=== PATIENT | male | born 1935 | race African-American/Black ===

== ENCOUNTER 2022-04-06 10:59 | Inpatient (IN) | payer OTHER, MEDICAID ==
[~2022-04-06] VITALS: Ht 182.9 cm; Wt 78.9 kg
[2022-04-06 11:49] LABS: BG BASE EXCESS -6.4 mmol/L (-2.0-2.0); BG CARBOXYHEMOGLOBIN 1.1 % (0.5-1.5); BG DEOXYHEMOGLOBIN 1.9 % (0.0-5.0); BG FRACTION INSPIRED OXYGEN 32; BG HCO3 ACT 19.5 mmol/L (22.0-26.0); BG METHEMOGLOBIN 0.3 % (0.0-1.5); BG OXYGEN SATURATION 98.1 % (92.0-98.5); BG OXYHEMOGLOBIN 96.7 % (94.0-97.0); BG PCO2 39.8 mmHg (35.0-45.0); BG PH 7.307 (7.350-7.450); BG PO2 111.1 mmHg (75.0-100.0); BG SAMPLE SITE RIGHT RADIAL; BG TOTAL HEMOGLOBIN 15.2 g/dL (12.0-18.0); BG VENT MODE NASAL CANNULA
[2022-04-06 11:59] LABS: BASOPHILS % 2.1 % (0.0-2.0); EOSINOPHILS % 1.7 % (0.0-5.0); HEMATOCRIT. 50.3 % (42.0-52.0); HEMOGLOBIN. 14.7 g/dL (14.0-18.0); LYMPHOCYTES % 14.6 % (20.0-50.0); MEAN CORPUSCULAR HEMOGLOBIN 24.2 pg (28.0-32.0); MEAN CORPUSCULAR VOLUME 82.9 fL (80.0-94.0); MEAN PLATELET VOLUME 7.7 fl (7.4-10.4); MONOCYTES % 4.8 % (2.0-8.0); NEUTROPHILS % 76.8 % (40.0-76.0); PLATELET 298 x1000/uL (130-400); RED BLOOD CELL COUNT 6.07 mill/uL (4.7-6.1); RED CELL DISTRIBUTION WIDTH 28.4 % (11.6-14.6)
[2022-04-06 12:03] LABS: CHLORIDE 108 mEq/L (98-107)
[2022-04-06 12:15] LABS: PLATELET ESTIMATE NORMAL
[2022-04-06] MEDS ORDERED: PIPERACILLIN/TAZ 3.375G PREMIX 50 ML IV ONE (12:45)
[2022-04-06] MEDS ORDERED: VANCOMYCIN 1G PREMIX 200 ML IV ONE (12:45)
[2022-04-06 14:18] LABS: INR 1.2; PROTHROMBIN TIME 13.1 sec (9.6-11.0)
[2022-04-06] MEDS ORDERED: ACETAMINOPHEN 325MG TABLET PO PRN (14:45)
[2022-04-06] MEDS ORDERED: CEFTRIAXONE 1 G PREMIX 50 ML IV SCH (14:45)
[2022-04-06] MEDS ORDERED: ONDANSETRON HCL 4MG/2ML INJ IV PRN (14:45)
[2022-04-06] MEDS: ASPIRIN 81MG TABLET PO SCH (15:17)
[2022-04-06] MEDS ORDERED: ENOXAPARIN 80MG/0.8ML SYR SUBCUT SCH (19:00)
[2022-04-06 20:04] VITALS: BP 148/88
[2022-04-06 20:16] LABS: CREATINE KINASE 90 IU/L (39-308)
[2022-04-06 20:28] VITALS: BP 148/82
[2022-04-06] MEDS: SODIUM CHLORIDE 0.45% 1,000 ML IV SCH (20:34)
[2022-04-06] MEDS: ATORVASTATIN CALCIUM 20MG TABLET PO SCH (20:45)
[2022-04-06] MEDS ORDERED: ALLO100T MT (23:28)
[2022-04-06] MEDS ORDERED: ASPI-1497 MT (23:28)
[2022-04-06] MEDS ORDERED: AMLO10TA80 PO (23:28)
[2022-04-06] MEDS ORDERED: CHOL100036 (23:28)
[2022-04-06 23:54] VITALS: BP 140/78
[2022-04-07 04:00] VITALS: BP 142/79
[2022-04-07 06:55] LABS: HEMATOCRIT. 42.5 % (42.0-52.0); HEMOGLOBIN. 12.9 g/dL (14.0-18.0); MEAN CORPUSCULAR HEMOGLOBIN 24.7 pg (28.0-32.0); MEAN CORPUSCULAR VOLUME 81.6 fL (80.0-94.0); MEAN PLATELET VOLUME 8.2 fl (7.4-10.4); PLATELET 168 x1000/uL (130-400); RED BLOOD CELL COUNT 5.21 mill/uL (4.7-6.1); RED CELL DISTRIBUTION WIDTH 27.5 % (11.6-14.6)
[2022-04-07 08:00] VITALS: BP 123/78
[2022-04-07 08:18] LABS: PLATELET ESTIMATE NORMAL
[2022-04-07] MEDS: ASPIRIN 81MG TABLET PO SCH (08:37)
[2022-04-07] MEDS: CEFTRIAXONE 1,000 MG in DEXTROSE 5% WATER 50 ML IV SCH (08:38)
[2022-04-07] MEDS: METOPROLOL TARTRATE 25MG TABLET PO SCH ×2 (09:42→20:16)
[2022-04-07] MEDS: SODIUM CHLORIDE 0.45% 1,000 ML IV SCH (14:51)
[2022-04-07 16:00] VITALS: BP 138/84
[2022-04-07 16:46] LABS: CREATINE KINASE 58 IU/L (39-308)
[2022-04-07 20:00] VITALS: BP 139/83
[2022-04-07] MEDS: ATORVASTATIN CALCIUM 20MG TABLET PO SCH (20:16)
[2022-04-07] MEDS ORDERED: ENOXAPARIN 80MG/0.8ML SYR SUBCUT SCH (21:00)
[2022-04-08] VITALS: BP 147/78
[2022-04-08 04:00] VITALS: BP 155/92
[2022-04-08 07:06] LABS: BASOPHILS % 2.6 % (0.0-2.0); EOSINOPHILS % 2.7 % (0.0-5.0); HEMATOCRIT. 45.8 % (42.0-52.0); HEMOGLOBIN. 13.6 g/dL (14.0-18.0); LYMPHOCYTES % 7.1 % (20.0-50.0); MEAN CORPUSCULAR HEMOGLOBIN 24.3 pg (28.0-32.0); MEAN PLATELET VOLUME 8.5 fl (7.4-10.4); NEUTROPHILS % 81.6 % (40.0-76.0); PLATELET 210 x1000/uL (130-400); RED BLOOD CELL COUNT 5.59 mill/uL (4.7-6.1); RED CELL DISTRIBUTION WIDTH 28.2 % (11.6-14.6)
[2022-04-08 08:00] VITALS: BP 166/94
[2022-04-08] MEDS: CEFTRIAXONE 1,000 MG in DEXTROSE 5% WATER 50 ML IV SCH (08:20)
[2022-04-08] MEDS: ASPIRIN 81MG TABLET PO SCH (08:20)
[2022-04-08] MEDS: METOPROLOL TARTRATE 25MG TABLET PO SCH (08:21)
[2022-04-08] MEDS ORDERED: AMLODIPINE 5MG TABLET PO SCH (09:00)
[2022-04-08] MEDS: SODIUM CHLORIDE 0.45% 1,000 ML IV SCH (10:00)
== END 2022-04-08 10:12 | disposition left against medical advice (07) | DRG 280 ==
LOC: ER 10:59 → EDBEDREQ 11:26 → EDBEDREQTM 12:12 → EDBEDREQSVC 12:12 → 7WST 13:52 → EDBEDREQ 13:55 → EDBEDREQTM 13:55 → ENRESERV 14:08
PROVIDERS: ADMIT Internal Medicine; ATTEND Internal Medicine
DX: I21.4 Non-ST elevation (NSTEMI) myocardial infarction (principal); E43 Unspecified severe protein-calorie malnutrition; N17.9 Acute kidney failure, unspecified; I48.92 Unspecified atrial flutter; N18.4 Chronic kidney disease, stage 4 (severe); G90.8 Other disorders of autonomic nervous system; Z20.822 Contact with and (suspected) exposure to COVID-19; I12.9 Hypertensive chronic kidney disease with stage 1 through stage 4 chronic kidney disease, or unspecified chronic kidney disease; E87.8 Other disorders of electrolyte and fluid balance, not elsewhere classified; I48.0 Paroxysmal atrial fibrillation; I45.10 Unspecified right bundle-branch block; I25.10 Atherosclerotic heart disease of native coronary artery without angina pectoris; E87.5 Hyperkalemia; I95.9 Hypotension, unspecified; E78.5 Hyperlipidemia, unspecified; Z53.29 Procedure and treatment not carried out because of patient's decision for other reasons; Z86.73 Personal history of transient ischemic attack (TIA), and cerebral infarction without residual deficits; Z88.8 Allergy status to other drugs, medicaments and biological substances; Z68.23 Body mass index [BMI] 23.0-23.9, adult; Z95.5 Presence of coronary angioplasty implant and graft; Z90.49 Acquired absence of other specified parts of digestive tract
CPT/HCPCS: 36415; 36600; 71045; 80048; 80053; 80061; 82375; 82550; 82805; 83605; 83735; 84145; 84484; 85025; 87426; 93005; 93306; 97166; 97535; 99285; J0696; J1650; J2543; J3370; J7060